=== PATIENT | male | born 1970 | race Caucasian/White ===

== ENCOUNTER 2024-01-05 09:12 | Emergency (ER) | payer OTHER, SELFPAY ==
--- NOTE | ~2024-01-05 | CT_ITS ---
Non-contrast Head CT History: Head injury, laceration Technique: Axial non-contrast imaging of the brain was performed. Dose reduction technique was used on this scan by utilizing automated exposure control and iterative reconstruction technique. The dose -length product (DLP) was 605.33 mGy-cm. Findings: There is no evidence of intracranial hemorrhage, mass lesion, or acute infarct. Brain par enchyma appears normal. The ventricles and subarachnoid spaces are normal in size. The calvarium ap pears normal. The visualized paranasal sinuses and mastoid air cells are clear. Probable laceration at the high left scalp. Impression: No intracranial abnormality seen. Reviewed, dictated and finalized at [facility]. Impression: No intracranial abnormality seen.
[2024-01-05 09:14] VITALS: BP 187/124; PULSE 85; RESP 16; TEMP 36.7; O2SAT 99
--- NOTE | 2024-01-05 09:24 | ED.WOUNDLAC ---
HPI - Wound/Laceration General Chief Complaint: Wound/Laceration Stated Complaint: head laceration Time Seen by Provider: 01/05/24 09:13 Source: patient Mode of arrival: ambulatory Limitations: no limitations History of Present Illness HPI narrative: Patient is a 53-year-old male who presents the ED with report of a head injury. Patient reports he was on a job site this morning and stood up underneath a backhoe bucket, hitting his head on the bucket. He sustained a large laceration to his scalp. Denied LOC. Denies any other injuries or other pain. Denies neck or back pain. Denies dizziness, lightheadedness, vision changes. Tetanus unknown. Related Data Allergies Allergy/AdvReac Type Severity Reaction Status Date / Time Sulfa (Sulfonamide Allergy Rash Verified 01/05/24 09:18 Antibiotics) Review of Systems Review of Systems: CONSTITUTIONAL: Denies fever, chills, or sweats. MUSCULOSKELETAL: Denies back pain, extremity pain, myalgia. NEUROLOGIC: See HPI. All systems reviewed & are unremarkable except as noted in HPI and below Exam Narrative: GENERAL: Well appearing, well-nourished, non-toxic, in no acute distress. HEAD: Normocephalic. Large approx 7cm L-shaped laceration to L superior parietal scalp. Minimal active bleeding. Mild surrounding tenderness/contusion. EYES: PERRL/EOMI, conjunctiva clear. RESPIRATORY: Airway patent, respirations nonlabored. CARDIOVASCULAR: Regular rate and rhythm MUSCULOSKELETAL: Moves all extremities. No gross deformities. SKIN: Warm, dry, normal color. NEURO: A&O X3. Speech clear. Cranial nerves II-XII grossly intact. Steady gait. No ataxic movements. PSYCHIATRIC: Appropriate mood and affect. Normal interaction. Course Vital Signs Vital signs: Vital Signs Temperature 98.1 F 01/05/24 09:14 Pulse Rate 85 01/05/24 09:14 Respiratory Rate 16 01/05/24 09:14 Blood Pressure 187/124 H 01/05/24 09:14 Pulse Oximetry 99 01/05/24 09:14 Oxygen Delivery Room Air 01/05/24 09:14 Temperature 98.1 F 01/05/24 09:14 Pulse Rate 85 01/05/24 09:14 Respiratory Rate 16 01/05/24 09:14 Blood Pressure 187/124 H 01/05/24 09:14 Pulse Oximetry 99 01/05/24 09:14 Oxygen Delivery Room Air 01/05/24 09:14 Procedures Laceration Laceration 1: Date: 01/05/24 Time: 10:35 Site: scalp Side (If applicable): left Size (cm): 7 Description: linear Depth: simple, single layer Local Anesthetic: other anesthetic (LET gel) Pre-repair: wound explored, irrigated and irrigated extensively ====== Skin Level ====== Skin layer closed with: saul (#8) ====== Subcutaneous Layer ====== ====== Muscle Layer ====== ====== Tendon Layer ====== MDM - Wound/Laceration MDM Narrative Medical decision making narrative: No neurologic deficits noted on exam. CT brain negative for traumatic findings. LET gel was applied. Laceration repaired with saul without complications. Tetanus updated. Patient given wound care instructions and reasons to return. Discussed possibility of concussion and management of such. Patient in agreement with plan and feels comfortable with discharge home. at bedside. Discharged in stable condition. Medical Records Attestation: I reviewed the patient's medical records. Imaging Data Attestation: I personally reviewed and interpreted this imaging study as follows: Radiologist's impression: ITS Impressions Head CT 01/05/24 09:50 Impression: No intracranial abnormality seen. Discharge Plan Discharge Clinical Impression: Closed head injury Qualifiers: Encounter type: initial encounter Qualified Code(s): S09.90XA - Unspecified injury of head, initial encounter Laceration of scalp Qualifiers: Encounter type: initial encounter Qualified Code(s): S01.01XA - Laceration without foreign body of scalp, initial encounter Patient
[2024-01-05] MEDS: LIDOCAINE, EPINEPHRINE, TETRACAINE VISCOUS SOLN 3 ML TOPICAL (10:00)
[2024-01-05] MEDS: TETANUS,DIPHTHERIA,AC PERTUSSIS ADULT (0.5 ML) BOOSTRIX IM (10:00)
[2024-01-05] MEDS: ACETAMINOPHEN 500 MG TABLET 1000 MG PO (11:05)
[2024-01-05] MEDS: IBUPROFEN 600 MG TABLET PO (11:06)
[2024-01-05] MEDS: ONDANSETRON HCL ODT 4 MG TABLET PO (11:06)
[2024-01-05 11:17] VITALS: BP 130/89; PULSE 87; RESP 18; O2SAT 99
== END 2024-01-05 11:28 | disposition home or self-care (01) ==
PROVIDERS: Emergency Provider Physician Assistant; PCP Internal Medicine
DX: S01.01XA Laceration without foreign body of scalp, initial encounter (principal); Z23 Encounter for immunization; W22.8XXA Striking against or struck by other objects, initial encounter
CPT/HCPCS: 12002; 70450; 90471; 90715; 99284; A9270

== ENCOUNTER 2024-01-14 16:55 | Emergency (ER) | payer OTHER, SELFPAY ==
[2024-01-14 17:08] VITALS: BP 169/95; PULSE 75; RESP 18; TEMP 36.7; O2SAT 99
--- NOTE | 2024-01-14 18:24 | ED.GENADULT ---
HPI - General Adult General Chief complaint: Wound/Laceration Stated complaint: Suture Removal Time Seen by Provider: 01/14/24 17:48 Source: patient, RN notes reviewed and old records reviewed Mode of arrival: ambulatory Limitations: no limitations History of Present Illness HPI narrative: 53-year-old male to [facility] for removal of 8 saul on scalp. Patient reports that he works in [employer] and that he struck his head on a piece of equipment on January 04. Patient reports that he was seen at [facility] and was sent home with the tool to remove the saul. Patient states he was advised that he could remove the saul at home if he felt comfortable. Patient reports that he and his coworkers attempted to remove the saul today without success and with complication. no active bleeding upon arrival. Patient calm cooperative in exam. Respirations even and nonlabored. Patient acute distress. Related Data Allergies Allergy/AdvReac Type Severity Reaction Status Date / Time Sulfa (Sulfonamide Allergy Rash Verified 01/05/24 09:18 Antibiotics) Review of Systems Review of Systems: All systems reviewed & are unremarkable except as noted in HPI and below Constitutional: Constitutional: Reports no additional constitutional complaints Eyes: Eyes: Reports no additional eye complaints ENT: Reports system reviewed and no additional complaints, except as documented Cardiovascular: Cardiovascular: Reports no additional cardiovascular complaints, Denies chest pain and Denies dyspnea Respiratory: Respiratory: Reports no additional respiratory complaints, Denies cough and Denies dyspnea Musculoskeletal: Musculoskeletal: Reports no additional musculoskeletal complaints Integumentary/Breasts: Skin/Breast: Reports as per HPI and Reports wounds (well-healing wound to left upper scalp with 8 saul present) Neurologic: Reports system reviewed and no additional complaints, except as documented Psychiatric: Psychiatric: Reports no additional psychiatric complaints PMFSH Comments At the time of my signature, I reviewed and agree with the nursing past medical, surgical, social, and family history. There is no relevant family history pertinent to the patient complaint. Exam Const: General: cooperative, healthy appearing, comfortable, no acute distress, alert and well nourished Nutritional Appearance: well nourished Orientation/consciousness: patient oriented x3 Limitations: no limitations HENMT: Head: normal to inspection Ears: external ears normal Face/Nose/Sinus: Normal external nose present, Normal nares present, normal facial exam, No erythema and No edema Face and sinus: normal facial exam, no erythema and no edema Mouth: Yes Normal oral and palatal mucosa present Eyes: General: appearance normal, both eyes and all related structures Neck: Neck: normal visual inspection, full ROM and no meningeal signs Lymphatic: no lymphadenopathy noted and no lymphedema noted Chest: Chest palpation & inspection: normal inspection of the chest Resp: Effort & Inspection: normal respiratory effort and able to speak in complete sentences Auscultation: clear to auscultation bilaterally Cardio: Jugular venous distension: no JVD Rate: regular rate Rhythm: regular rhythm Back/Spine/Pelvis: Cervical Spine: cervical ROM normal Skin: General skin exam: normal color, no rashes or lesions noted and turgor normal Neuro: General: patient oriented x3, gait normal, moves all extremities and no meningeal signs Speech: normal speech Gait exam (Neuro): Normal gait present Extrem: General: normal to inspection, full ROM and capillary refill normal Psych: Appearance: grossly normal and well kempt Course Course Emergency Course: Some parts of this dictation were generated by voice recognition software and may contain typographical and/or grammatical inaccuracies. Level of Care: Express Care Visit Vital Signs Vital
== END 2024-01-14 18:03 | disposition home or self-care (01) ==
PROVIDERS: Emergency Provider Nurse Practitioner Family
DX: S01.01XD Laceration without foreign body of scalp, subsequent encounter (principal); W22.8XXD Striking against or struck by other objects, subsequent encounter
CPT/HCPCS: 99211; G0463

== ENCOUNTER 2024-02-15 14:07 | Emergency (ER) | payer OTHER, SELFPAY ==
--- NOTE | ~2024-02-15 | XR_ITS ---
XR finger 4th RT min 2V Ordering provider: Maria Del Carmen Guo NP History: . smashed x last night, visible bruising and swelling . Comparison: None. FINDINGS: BONES: Fracture in the tuft of the distal phalanx of the fourth finger. JOINT SPACES: Normal. SOFT TISSUES: Normal. IMPRESSION: Fracture of the tuft of the distal phalanx of the fourth finger. Reviewed, dictated and finalized at location [facility].
--- NOTE | 2024-02-15 14:14 | ED.UPPEXIN ---
HPI - Extremity Injury (Upper) General Chief Complaint: Extremity Injury, Upper Stated Complaint: Right Hand Finger Pain Time Seen by Provider: 02/15/24 14:24 Source: patient and RN notes reviewed Mode of arrival: ambulatory Limitations: no limitations History of Present Illness HPI narrative: 53-year-old male presents with concern for injury to the 4th digit of the right hand. Reports he smashed his hand yesterday in between 2 panels of a garage door. Reports pressure, bruising in the digit MD complaint: injury to: right and finger Related Data Home Medications Medication Instructions Recorded Confirmed cetirizine 10 mg tablet (Zyrtec) 10 mg PO DAILY 02/15/24 02/15/24 omeprazole 20 mg capsule,delayed 20 mg PO DAILY 02/15/24 02/15/24 release Allergies Allergy/AdvReac Type Severity Reaction Status Date / Time Sulfa (Sulfonamide Allergy Rash Verified 02/15/24 14:20 Antibiotics) Review of Systems Review of Systems: CONSTITUTIONAL: Denies malaise, chills, sweats, or fever. SKIN: Denies rash or itching, open skin, laceration, abrasion, redness, warmth MUSCULOSKELETAL: Reports bruising, pain to the 4th digit of the right hand NEUROLOGIC: Denies numbness, weakness All systems reviewed & are unremarkable except as noted in HPI and below PMFSH Comments At time of signature, agree with nursing past medical, surgical, social and family history. There is no relevant family history pertinent to the presenting complaint Exam Narrative: GENERAL: Well-appearing, well-nourished, and in no acute distress. HEAD: Normocephalic, atraumatic. EYES: PERRLA, conjunctivae clear NECK: Supple. CHEST: Speaks in full sentences. No respiratory distress. HEART: Regular rate and rhythm. Normal and equal peripheral pulses. EXTREMITIES: 4th digit of right hand has grossly normal strength and sensation, normal range of motion. Moderate distal edema and ecchymosis. Normal sensation with sensitivity to light touch and pain. Distal digit tenderness. No open wounds, no skin tenting, no devitalized tissue or atrophy, no trophic changes, no obvious deformity, alignment normal, nearby joints and structures intact. Distal pulses palpable and equal bilaterally, skin warm, dry, pink. Capillary refill less than 3 seconds. SKIN: Warm, dry, no rash. Subungual hematoma of the 4th digit of the right hand NEURO: Alert and oriented x3. PSYCH: Normal mood and affect Course Course Emergency Course: Patient is aware of diagnosis, understands and agrees to treatment plan. Anticipatory guidance given. Patient agrees to follow-up as directed and is aware of reasons to seek care at the emergency department. Portions of this record may have been created with voice recognition software Level of Care: Express Care Visit Vital Signs Vital signs: Reviewed. Procedures Nail Trephination Nail Trephination #1: Nail Trephination Date: 02/15/24 Nail Trephination Time: 14:26 Time out: Yes Location (finger): right and ring Sterile prep: betadine Method of drainage: nail cautery Procedure successful: Yes Patient tolerated procedure: well Nail Trephination Comment: Patient has finger fracture so I will prescribe prophylactic antibiotic after trephination Critical Care Time Critical Care Time Critical Care Time: No Discharge Plan Discharge Clinical Impression: Closed fracture of tuft of distal phalanx of right ring finger, Subungual hematoma Patient Disposition: Home, Self-Care Condition: Stable Instructions: Antibiotic Form, Subungual Hematoma (ED), Finger Fracture (ED) Additional Instructions: Please rest, ice and elevate the affected extremity. Please take Motrin 600mg every 8 hours, as needed, for pain (take with food). You can keep a bandage on the finger for the next 24 hours. Follow up with your primary care doctor or orthopedics for further evaluation. Keep metal splint best
[2024-02-15 14:17] VITALS: BP 144/89; PULSE 76; RESP 18; TEMP 37.3; O2SAT 99
== END 2024-02-15 14:39 | disposition home or self-care (01) ==
PROVIDERS: Emergency Provider Nurse Practitioner; PCP Internal Medicine
DX: S62.634A Displaced fracture of distal phalanx of right ring finger, initial encounter for closed fracture (principal); S60.141A Contusion of right ring finger with damage to nail, initial encounter; W23.0XXA Caught, crushed, jammed, or pinched between moving objects, initial encounter; K21.9 Gastro-esophageal reflux disease without esophagitis
CPT/HCPCS: 11740; 29130; 73140; 99214; G0463